=== PATIENT | male | born 1980 | race Caucasian/White ===

== ENCOUNTER → 2018-08-04 | Outpatient (CLI) | payer OTHER ==
[~2018-08-04] MED LIST: CONRAY-43 43% 50ML VIAL (Q9960) As Ordered ONE; PROHANCE 279.3MG/ML 5ML VIAL (A9576) As Ordered ONE
--- NOTE | 2018-08-04 09:36 | REP ---
MRI LEFT HIP WITHOUT AND WITH CONTRAST ARTHROGRAM: 08/04/2018. Clinical history: Chronic left hip pain with insidious onset after running. No improvement with conservative treatment. Technique: Whole pelvic T1 and STIR images with axial, coronal and sagittal T2 fat suppressed images. After gadolinium arthrogram injection, T1 fat suppressed axial, coronal and sagittal images were then provided. Findings: No prior study. Marrow sequences show the sacrum, visualized portions of iliac bones, acetabuli and ischia intact. Symmetric appearance to the marrow of the femoral heads and necks, trochanters and subtrochanteric femoral shafts also. No bone bruise, fracture or focal lesion identified. There is a small amount of fluid in both joints in a symmetric fashion. No effusion. The intrinsic and extrinsic pelvic, hip, buttock and proximal thigh musculature is symmetric and normal in signal with no atrophy or mass. No intramuscular hemorrhage. I see no trochanteric bursitis. The intrinsic pelvic structures include a partially filled bladder without any significant finding and no pelvic mass adenopathy or free fluid. There is no visible adenopathy or hernia in the left inguinal region. The iliopsoas, obturator internus and hamstring tendon insertions were all grossly unremarkable. On the arthrogram images I see no evidence of a loose body. There is a fairly deep paralabral sulcus. Some irregularity of the superior labrum posteriorly. I cannot discern a intrasubstance labral tear. Impression: 1. There is a prominent paralabral sulcus evident on the arthrogram images superiorly with some mild irregularity of the superior labrum but no intrasubstance signal that would clearly define tear. There is no loose body, glenohumeral joint effusion, any significant trochanteric tendinobursitis, bone bruise, fracture or AVN. 2. Other tendons about the hip and their musculature unremarkable. Electronically Signed by Hieu Valderrama MD 08/04/2018 07:25 P
--- NOTE | 2018-08-04 19:28 | REP ---
Left hip arthrogram The procedure was performed under the direction supervision of Dr. Valderrama. The benefits and risks including but not limited to pain, infection, bleeding and anaphylaxis were explained to the patient and informed consent was obtained. The left femoral neck was localized using fluoroscopic guidance. Skin was prepped and draped in a sterile fashion. 1% lidocaine was used as a local anesthetic. Using fluoroscopic guidance a 22 gauge spinal needle was inserted and advanced to the femoral neck. 0.5 ml of Conray 43 was injected to verify placement. 11 ml of a solution containing 20 ml of sterile saline and 0.15 ml of ProHance was injected into the joint. The needle was removed and the patient was taken to MRI for postprocedural imaging. The patient tolerated the procedure well and there were no immediate complications. Less than 6 seconds of fluoro time was utilized for this procedure. Reviewed by EUGENE Earl 08/04/2018 05:00 P Electronically Signed by Hieu Valderrama MD 08/04/2018 07:19 P
== END ==
LOC: M RADPRO 06:36
DX: M24.852 Other specific joint derangements of left hip, not elsewhere classified (principal); M25.552 Pain in left hip
CPT/HCPCS: 27093; 73723; 77002; A9576; Q9960